=== PATIENT | female | born 1990 | race Hispanic/Latino ===

== ENCOUNTER 2018-02-23 19:25 | Observation (INO) | payer SELFPAY ==
--- NOTE | 2018-02-23 20:20 | RAD REPORT ---
EXAM DESCRIPTION: US - Abdomen Exam Limited - 02/23/2018 7:59 pm CLINICAL HISTORY: Abdominal pain COMPARISON: None. FINDINGS: Multiple mobile gallstones are identifiable. No mass identified. There is no wall thickeni ng or pericholecystic fluid. No common duct stone or biliary tree dilatation identified. IMPRESSION: Multi stone cholelithiasis. No acute gallbladder or biliary finding otherwise noted.
[2018-02-23] MEDS ORDERED: ONDANSETRON 4 MG/2 ML VIAL ONE (20:26)
[2018-02-23 20:27] LABS: Absolute Lymphocytes (CBC) 1.3 K/uL (0.7-4.9); Absolute Monocytes 0.6 K/uL (0.1-1.3); Absolute Neutrophil 4.7 K/uL (1.8-8.0); Basophils % 0.6 % (0-1.3); Eosinophils % 0.1 % (0-4.4); Hematocrit 45.2 % (36.0-45.0); Lymphocytes % 19.8 % (15.3-44.8); MCH 30.7 pg (27.0-35.0); MCV 88.5 fL (80-100); MPV 7.5 fL (7.6-11.3); Monocytes % 9.6 % (3.3-12.3); RBC Red Blood Cell Count 5.11 M/uL (3.86-4.86)
[2018-02-23] MEDS ORDERED: NA CHLORIDE 0.9% 1,000 ML ONE (20:36)
[2018-02-23 20:49] LABS: Bilirubin Direct 0.2 mg/dL (0-0.2); Bilirubin Total 1.1 mg/dL (0.3-1.2); Protein, Total 8.9 g/dL (6.0-8.3)
[2018-02-23 20:56] LABS: Potassium 2.8 mEq/L (3.6-5.0)
[2018-02-23] MEDS ORDERED: KCL 20 MEQ/100 mL IVPB 20 MEQ/100 ML BAG IV ONE (21:34)
--- NOTE | 2018-02-23 22:25 | ER ---
Nurse's Notes [facility] Name: Alma Delia Abdullahi Age: 27 yrs Sex: Female : 1990 Arrival Date: 02/23/2018 Time: 19:29 Bed 25 Private MD: Diagnosis: Vomiting, unspecified;Dehydration;Gastritis, unspecified, with bleeding Presentation: 02/23 19:40 Presenting complaint: Patient states: N/V epigastric pain that started last night. aj Reports pain radiates to back. Transition of care: patient was not received from another setting of care. Onset of symptoms was February 22, 2018. Care prior to arrival: None. 19:40 Method Of Arrival: Ambulatory aj 19:40 Acuity: MAURILIO 3 aj Triage Assessment: 19:42 General: Appears in no apparent distress. uncomfortable, Behavior is calm, cooperative, aj appropriate for age. Pain: Complains of pain in epigastric area Pain currently is 10 out of 10 on a pain scale. Neuro: Level of Consciousness is awake, alert, obeys commands, Oriented to person, place, time, situation. Respiratory: Airway is patent Respiratory effort is even, unlabored. GI: Abdomen is obese, Reports upper abdominal pain, nausea, vomiting. Derm: Skin is intact, is healthy with good turgor, Skin is pink, warm \T\ dry. normal. 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 - Social history:: Smoking status: Patient uses tobacco products, denies chronic smoking, but will smoke occasionally. Screenin:23 Abuse screen: Denies threats or abuse. Nutritional screening: No deficits noted. tl3 Tuberculosis screening: No symptoms or risk factors identified. Fall Risk None identified. Assessment: 20:20 General: Appears uncomfortable, well groomed, well developed, well nourished, Behavior tl3 is calm, cooperative, appropriate for age. 20:23 Pain: Complains of pain in diaphragm, xyphoid area and mid-sternal area. Neuro: Level tl3 of Consciousness is awake, alert, obeys commands, Oriented to person, place, time, situation, Appropriate for age. Cardiovascular: Heart tones S1 S2 present Capillary refill < 3 seconds in bilateral fingers. Respiratory: Airway is patent Trachea midline Respiratory effort is even, unlabored, Respiratory pattern is regular, symmetrical, Breath sounds are clear bilaterally. GI: Bowel sounds present X 4 quads. Reports indigestion, vomiting. GI: Abdomen is round. : No signs and/or symptoms were reported regarding the genitourinary system. EENT: No signs and/or symptoms were reported regarding the EENT system. Derm: No signs and/or symptoms reported regarding the dermatologic system. Musculoskeletal: No signs and/or symptoms reported regarding the musculoskeletal system. 20:51 Reassessment: Patient appears in no apparent distress at this time. No changes from tl3 previously documented assessment. Patient and/or family updated on plan of care and expected duration. Pain level reassessed. Patient is alert, oriented x 3, equal unlabored respirations, skin warm/dry/pink. vomiting has ceased. 21:50 Reassessment: Patient appears in no apparent distress at this time. No changes from tl3 previously documented assessment. Patient and/or family updated on plan of care and expected duration. Pain level reassessed. Patient is alert, oriented x 3, equal unlabored respirations, skin warm/dry/pink. 23:12 Reassessment: Patient appears in no apparent distress at this time. No changes from tl3 previously documented assessment. Patient and/or family updated on plan of care and expected duration. Pain level reassessed. Patient is alert, oriented x 3, equal unlabored respirations, skin warm/dry/pink. Vital Signs: 19:42 BP 145 / 119; Pulse 113; Resp 20; Temp 98.0; Pulse Ox 97% on R/A; Weight 104.33 kg; aj Height 5 ft. 2 in. (157.48 cm); Pain 10/10; 20:23 BP 148 / 100; Pulse 94; Resp 18; Pulse Ox 97% ; tl3 20:51 BP 145 / 117; Pulse 104; Resp 16; Pulse Ox 98% on R/A; tl3 23:12 BP 143 / 80; Pulse 96; Resp 16; Pulse Ox 100% on R/A; tl3 23:44 BP 151 / 84; Pulse 110; Resp 16; Pulse Ox 100% on R/A; tl3 19:42 Body Mass Index 42.07 (104.33 kg, 157.48 cm) aj ED Course: 19:29 Patient arrived in ED. ds1 19:41 Triage completed. aj 19:42 Arm band placed on left wrist. Patient placed in waiting room, Patient notified of wait aj time. ultrasound ordered. 19:50 Lobo Santiago MD is Attending Physician. tw4 19:59 Ultrasound completed. Patient tolerated well. cy 20:00 US Abdomen Limited In Process Unspecified. EDMS 20:19 Ting Jefferson, ED is Primary Nurse. tl3 20:19 Initial lab(s) drawn, by ED staff, sent to lab. Inserted saline lock: 18 gauge in right tl3 antecubital area, using aseptic technique. Blood collected. 20:23 Resting quietly. tl3 20:23 Patient has correct armband on for positive identification. Bed in low position. Side tl3 rails up X 1. Pulse ox on. NIBP on. 20:23 No provider procedures requiring assistance completed. tl3 20:56 Notified ED physician of a critical lab result(s). potassium of 2.8 Dr Santiago notified. bb 22:23 Mik Blackwood MD is Hospitalizing Provider. tw4 23:52 Patient admitted, IV remains in place. tl3 Administered Medications: 20:35 Drug: Zofran 4 mg Route: IVP; Infused Over: 3 mins; Site: left antecubital; tl3 20:43 Follow up: Response: No adverse reaction; Nausea is decreased tl3 20:35 Drug: NS 0.9% 1000 ml Route: IV; Rate: 1 bolus; Site: left antecubital; tl3 21:40 Follow up: IV Status: Completed infusion; IV Intake: 1000ml tl3 21:42 Drug: Potassium Chloride 20 mEq Route: IV; Rate: TKO; Site: left antecubital; tl3 23:45 Follow up: IV Status: Completed infusion; IV Intake: 100ml tl3 22:34 Drug: ProTONIX 40 mg Route: IVP; Site: left antecubital; kb1 23:45 Follow up: Response: No adverse reaction tl3 Intake: 21:40 IV: 1000ml; Total: 1000ml. tl3 23:45 IV: 100ml; Total: 1100ml. tl3 Outcome: 22:24 Decision to Hospitalize by Provider. tw4 23:52 Admitted to Tele accompanied by tech, via wheelchair, with chart, Report called to tl3 ED King 23:52 Condition: stable 02/24 00:21 Patient left the ED. tl3 Signatures: Dispatcher [employer] Cristina Mena RN Cece Reid ds1 Erna Herzog RN RN Joyce Coughlin Terrence, MD MD tw4 Violet Valdez RN RN kb1 Ting Jefferson RN RN tl3 Corrections: (The following items were deleted from the chart) 02/23 23:47 23:46 IV Status: Completed infusion; IV Intake: 1000ml tl3 tl3
--- NOTE | 2018-02-23 22:25 | EDPHYS ---
Physician Documentation [facility] Name: Alma Delia Abdullahi Age: 27 yrs Sex: Female : 1990 Arrival Date: 02/23/2018 Time: 19:29 Bed 25 Private MD: ED Physician Lobo Santiago HPI: 02/24 00:00 This 27 yrs old Female presents to ER via Ambulatory with complaints of tw4 Nausea, Vomiting, Chills, Fever. 00:00 The patient presents to the emergency department with nausea, vomiting. Onset: The tw4 symptoms/episode began/occurred today. Possible causes: unknown. The symptoms are aggravated by nothing. The symptoms are alleviated by nothing. Associated signs and symptoms: The patient has no apparent associated signs or symptoms. Severity of symptoms: At their worst the symptoms were moderate in the emergency department the symptoms are unchanged. The patient has not experienced similar symptoms in the past. 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 - Social history:: Smoking status: Patient uses tobacco products, denies chronic smoking, but will smoke occasionally. ROS: 02/24 00:00 Constitutional: Negative for fever, chills, and weight loss, Eyes: Negative for injury, tw4 pain, redness, and discharge, Cardiovascular: Negative for chest pain, palpitations, and edema, Respiratory: Negative for shortness of breath, cough, wheezing, and pleuritic chest pain, Back: Negative for injury and pain. Abdomen/GI: Positive for abdominal pain, nausea and vomiting, nausea, vomiting, and diarrhea, nausea, vomiting, Negative for constipation, black/tarry stool, rectal pain, rectal bleeding, bowel incontinence. Exam: 00:00 Constitutional: This is a well developed, well nourished patient who is awake, alert, tw4 and in no acute distress. Head/Face: Normocephalic, atraumatic. Chest/axilla: Normal chest wall appearance and motion. Nontender with no deformity. No lesions are appreciated. Cardiovascular: Regular rate and rhythm with a normal S1 and S2. No gallops, murmurs, or rubs. Normal PMI, no JVD. No pulse deficits. Respiratory: Lungs have equal breath sounds bilaterally, clear to auscultation and percussion. No rales, rhonchi or wheezes noted. No increased work of breathing, no retractions or nasal flaring. Abdomen/GI: Soft, non-tender, with normal bowel sounds. No distension or tympany. No guarding or rebound. No evidence of tenderness throughout. Vital Signs: 02/23 19:42 BP 145 / 119; Pulse 113; Resp 20; Temp 98.0; Pulse Ox 97% on R/A; Weight 104.33 kg; aj Height 5 ft. 2 in. (157.48 cm); Pain 10/10; 20:23 BP 148 / 100; Pulse 94; Resp 18; Pulse Ox 97% ; tl3 20:51 BP 145 / 117; Pulse 104; Resp 16; Pulse Ox 98% on R/A; tl3 23:12 BP 143 / 80; Pulse 96; Resp 16; Pulse Ox 100% on R/A; tl3 23:44 BP 151 / 84; Pulse 110; Resp 16; Pulse Ox 100% on R/A; tl3 19:42 Body Mass Index 42.07 (104.33 kg, 157.48 cm) aj MDM: 19:52 Patient medically screened. tw02/24 00:03 Differential diagnosis: Nonspecific abd pain, gastritis, cholecystitis. Data reviewed: tw4 vital signs, nurses notes. Counseling: I had a detailed discussion with the patient and/or guardian regarding: the historical points, exam findings, and any diagnostic results supporting the discharge/admit diagnosis, lab results. Physician consultation: Mik Blackwood MD regarding admission, patient's condition, and will see patient. 02/23 19:52 Order name: Amylase, Serum; Complete Time: 21:06 4 02/23 19:52 Order name: Basic Metabolic Panel; Complete Time: 21:06 tw4 02/23 21:06 Interpretation: Normal except: GLUC 124; GFR 60; CRE 1.09; K 2.8; CL 96. tw4 02/23 19:52 Order name: CBC with Diff; Complete Time: 21:06 4 02/23 21:06 Interpretation: Normal except: RBC 5.11; HGB 15.7; HCT 45.2; PLT 479; MPV 7.5. 02/23 19:52 Order name: Creatinine for Radiology; Complete Time: 21:06 02/23 19:52 Order name: Hepatic Function; Complete Time: 21:06 02/23 19:52 Order name: Lipase; Complete Time: 21:06 02/23 20:23 Order name: Urine Microscopic Only 02/23 19:41 Order name: US Abdomen Limited; Complete Time: 21:06 02/23 19:52 Order name: IV Saline Lock; Complete Time: 20:22 02/23 19:52 Order name: Labs collected and sent; Complete Time: 20:22 02/23 19:52 Order name: Urine Dipstick-Ancillary (obtain specimen); Complete Time: 23:00 02/23 20:23 Order name: Urine Dipstick-Ancillary (obtain specimen); Complete Time: 23:01 02/23 20:23 Order name: Urine Test (obtain specimen); Complete Time: 23:01 02/23 20:23 Order name: IV Saline Lock; Complete Time: 20:51 02/23 22:18 Order name: Urine Dipstick--Ancillary (enter results) [facility] 02/23 22:18 Order name: Urine --Ancillary (enter results) rg2 Administered Medications: 02/23 20:35 Drug: Zofran 4 mg Route: IVP; Infused Over: 3 mins; Site: left antecubital; tl3 20:43 Follow up: Response: No adverse reaction; Nausea is decreased tl3 20:35 Drug: NS 0.9% 1000 ml Route: IV; Rate: 1 bolus; Site: left antecubital; tl3 21:40 Follow up: IV Status: Completed infusion; IV Intake: 1000ml tl3 21:42 Drug: Potassium Chloride 20 mEq Route: IV; Rate: TKO; Site: left antecubital; tl3 23:45 Follow up: IV Status: Completed infusion; IV Intake: 100ml tl3 22:34 Drug: ProTONIX 40 mg Route: IVP; Site: left antecubital; kb1 23:45 Follow up: Response: No adverse reaction tl3 Disposition: 04/09/18 22:24 Hospitalization ordered by Mik Blackwood for Observation. Preliminary diagnosis are Vomiting, unspecified, Dehydration, Gastritis, unspecified, with bleeding. - Bed requested for Telemetry/MedSurg (observation). - Status is Observation. tl3 - Condition is Stable. - Problem is an ongoing problem. - Symptoms are unchanged. UTI on Admission? No Signatures: Dispatcher [employer] EDMS Cristina Silverio, RN RN Veronica Galindo RN RN Lobo Servin MD MD tw4 Violet Valdez RN RN kb1 Ting Jefferson, ED RN tl3 Corrections: (The following items were deleted from the chart) 20:42 20:24 LIPASE+C.LAB.BRZ ordered. EDMS EDMS 20:42 20:24 Creatinine for Radiology+C.LAB.BRZ ordered. EDMS EDMS 20:42 20:24 HEPATIC FUNCTION+C.LAB.BRZ ordered. EDMS EDMS 20:42 20:24 BASIC METABOLIC PANEL+C.LAB.BRZ ordered. EDMS EDMS 20:42 20:24 CBC+H.LAB.BRZ ordered. EDMS EDMS 20:42 20:24 AMYLASE, SERUM+C.LAB.BRZ ordered. EDMS EDMS 22:20 19:52 UA MICROSCOPIC+U.LAB.BRZ ordered. EDMS EDMS
[2018-02-23] MEDS ORDERED: PANTOPRAZOLE 40 MG INJ ONE (22:29)
[2018-02-23 22:32] LABS: Urine Blood 1+ (NEG); Urine Glucose NEGATIVE (NEG); Urine Protein 3+ (NEG); Urine Specific Gravity >1.030 (1.005-1.030); Urine pH 5.5 (5.0-7.0)
[2018-02-23] MEDS ORDERED: PANTOPRAZOLE 40 MG INJ IVP ONE (23:38)
[2018-02-23] MEDS ORDERED: SODIUM CHLORIDE 0.9% 10ML INJ IV PRN (23:38)
[2018-02-23] MEDS ORDERED: LORazepam 2 MG/ML VIAL IV PRN (23:40)
[2018-02-24 00:24] LABS: Calcium Oxalate Crystals- Ur MANY (NONE SEEN); Urine Bacteria >50 /HPF (<20); Urine Culture Reflex Order REFLEXED
[2018-02-24 00:25] LABS: Urine RBC <5 /HPF (NONE SEEN)
[2018-02-24] MEDS: MEPERIDINE HCL 25 MG/0.5 ML IV PRN ×3 (00:55→21:05)
[2018-02-24] MEDS: ONDANSETRON 4 MG/2 ML VIAL IV PRN ×2 (00:56→12:21)
[2018-02-24] MEDS: METHYLPREDNISOLONE 125 MG INJ IV SCH ×2 (00:56→06:45)
[2018-02-24] MEDS: NA CHLORIDE 0.9% 1,000 ML IV SCH ×3 (00:56→19:45)
[2018-02-24 01:14] VITALS: BMI 42.0
[2018-02-24] MEDS ORDERED: LORazepam 2 MG/ML VIAL IV ONE (01:43)
[2018-02-24] MEDS ORDERED: METOCLOPRAMIDE 10 MG/2mL INJ IV ONE (02:00)
[2018-02-24 05:01] LABS: Absolute Lymphocytes (CBC) 0.7 K/uL (0.7-4.9); Absolute Monocytes 0.1 K/uL (0.1-1.3); Absolute Neutrophil 6.1 K/uL (1.8-8.0); Basophils % 0.6 % (0-1.3); Hematocrit 41.9 % (36.0-45.0); Lymphocytes % 9.5 % (15.3-44.8); MCH 30.7 pg (27.0-35.0); MCV 88.9 fL (80-100); MPV 7.4 fL (7.6-11.3); Monocytes % 0.9 % (3.3-12.3); RBC Red Blood Cell Count 4.72 M/uL (3.86-4.86)
[2018-02-24 05:26] LABS: ALT/SGPT 39 IU/L (10-60); AST/SGOT 19 IU/L (10-42); Albumin 4.2 g/dL (3.2-5.5); Alkaline Phosphatase 77 IU/L (42-121); BUN Blood Urea Nitrogen 16 mg/dL (6-20); Bicarbonate 24 mEq/L (21-31); Bilirubin Total 0.8 mg/dL (0.3-1.2); Glomerular Filtration Rate > 90 mL/min (=/>90); Glucose Level 119 mg/dL (65-120); Magnesium 1.9 mg/dL (1.8-2.5); Phosphorus 2.8 mg/dL (2.5-4.3); Potassium 3.4 mEq/L (3.6-5.0); Protein, Total 7.7 g/dL (6.0-8.3); Sodium Level 135 mEq/L (135-145)
[2018-02-24 06:00] LABS: Blood Morphology Comment NOT SEEN (NOT SEEN); Platelet Estimate ADEQ
--- NOTE | 2018-02-24 07:58 | P.HP ---
Certification for Inpatient Patient admitted to: Observation With expected LOS: <2 Midnights Patient will require the following post-hospital care: None Practitioner: I am a practitioner with admitting privileges, knowledge of patient current condition, hospital course, and medical plan of care. Services: Services provided to patient in accordance with Admission requirements found in Title 42 Section 412.3 of the Code of Federal Regulations Patient History Date of Service: 02/24/18 Reason for admission: Persistent nausea and vomiting History of Present Illness: Patient is a 27-year-old female who comes into the emergency room with persistent nausea and vomiting. This has been going on for the last 24-48 hr. She has had this symptom on an off for the last 4 years. She has had a workup performed but no one has been able to tell her exactly why she has the persistent nausea and vomiting. She does smoke marijuana and regularly. She has been doing this since she was 15. Unsure as to the etiology of the nausea and vomiting. Have given her anti emetics and will see how she does. Will start a diet in the morning and advance as tolerated. Allergies NKDA Allergy (Uncoded 12/04/15 09:10) Unknown No Known Allergies Allergy (Uncoded 02/07/16 04:09) Unknown Home Medications: NK [No Home Meds] 02/24/18 - Past Medical/Surgical History Has patient received pneumonia vaccine in the past: No Diabetic: No -: GERD -: appendicitis w/o appendectomy Past Surgical History: Patient denies surgical history - Family History Father Family History: Reviewed- Non-Contributory - Social History Smoking Status: Never smoker Alcohol use: No CD- Drugs: Yes Caffeine use: Yes Place of Residence: Home Review of Systems 10-point ROS is otherwise unremarkable Physical Examination - Vital Signs Temperature: 99.2 F Blood Pressure: 146/76 Pulse: 87 Respirations: 16 Pulse Ox (%): 95 - Physical Exam General: Alert, In no apparent distress, Oriented x3 HEENT: Atraumatic, PERRLA, Mucous membr. moist/pink, EOMI, Sclerae nonicteric Neck: Supple, 2+ carotid pulse no bruit, No LAD, Without JVD or thyroid abnormality Respiratory: Clear to auscultation bilaterally, Normal air movement Cardiovascular: Regular rate/rhythm, Normal S1 S2, No murmurs Gastrointestinal: Normal bowel sounds, Soft and benign, Non-distended, No tenderness Musculoskeletal: No clubbing, No swelling, No tenderness Integumentary: No rashes Neurological: Normal gait, Normal speech, Normal strength at 5/5 x4 extr, Normal tone, Sensation intact, Cranial nerves 3-12 intact, Normal affect Lymphatics: No axilla or inguinal lymphadenopathy - Studies Laboratory Data (last 24 hrs) 02/23/18 20:23: WBC Cancelled, Hgb Cancelled, Hct Cancelled, Plt Count Cancelled 02/23/18 20:23: Creatinine Cancelled 02/23/18 20:23: Sodium Cancelled, Potassium Cancelled, BUN Cancelled, Creatinine Cancelled, Glucose Cancelled, Total Bilirubin Cancelled, AST Cancelled, ALT Cancelled, Alkaline Phosphatase Cancelled, Amylase Cancelled, Lipase Cancelled 02/23/18 20:07: Creatinine 1.11 H 02/23/18 20:07: WBC 6.8, Hgb 15.7 H, Hct 45.2 H, Plt Count 479 H 02/23/18 20:07: Sodium 135, Potassium 2.8 L*, BUN 20, Creatinine 1.09 H, Glucose 124 H, Total Bilirubin 1.1, AST 26, ALT 47, Alkaline Phosphatase 83, Amylase 68, Lipase 12 L Assessment & Plan - Problems (Diagnosis) (1) Intractable nausea and vomiting Current Visit: Yes Status: Acute (2) Cannabis hyperemesis syndrome concurrent with and due to cannabis abuse Current Visit: Yes Status: Acute - Plan Plan: 1. IV hydration 2. Anti emetics 3. Ice chips 4. Advanced diet in the morning as tolerated 5. Outpatient GI follow-up 6. Refrain from cannabis use; this should tell us if her symptoms are related to her cannabis use 7. GI and DVT prophylaxis Discharge Plan: Home Plan to discharge in: 48 Hours - Advance Directives Does patient have a Living Will: No Does patient have a Durable POA for Healthcare: No - Code Status/Comfort Care Code Status Assessed: Yes Code Status: Full Code Critical Care: No Time Spent Managing PTS Care (In Minutes): 50
[2018-02-24] MEDS: PANTOPRAZOLE 40 MG INJ IVP SCH ×2 (08:53→20:43)
--- NOTE | 2018-02-24 10:13 | P.PN ---
Subjective Date of Service: 02/24/18 Chief Complaint: Persistent nausea and vomiting Subjective: Improving (Patient without nausea and vomiting this morning.) Physical Examination - Vital Signs Temperature: 99.2 F Blood Pressure: 146/76 Pulse: 87 Respirations: 16 Pulse Ox (%): 95 - Physical Exam General: Alert, In no apparent distress, Oriented x3, Cooperative HEENT: Atraumatic, Mucous membr. moist/pink Neck: Supple Respiratory: Clear to auscultation bilaterally, Normal air movement Cardiovascular: Normal pulses, Regular rate/rhythm Gastrointestinal: Normal bowel sounds, Soft and benign, Non-distended, No tenderness, No masses, No rebound, No guarding Musculoskeletal: No erythema, No tenderness, No warmth Integumentary: No tenderness/swelling, No erythema, No warmth, No cyanosis Neurological: Normal speech, Normal strength at 5/5 x4 extr, Normal tone, Normal affect - Studies Laboratory Data (last 24 hrs) 02/23/18 20:23: WBC Cancelled, Hgb Cancelled, Hct Cancelled, Plt Count Cancelled 02/23/18 20:23: Creatinine Cancelled 02/23/18 20:23: Sodium Cancelled, Potassium Cancelled, BUN Cancelled, Creatinine Cancelled, Glucose Cancelled, Total Bilirubin Cancelled, AST Cancelled, ALT Cancelled, Alkaline Phosphatase Cancelled, Amylase Cancelled, Lipase Cancelled 02/23/18 20:07: Creatinine 1.11 H 02/23/18 20:07: WBC 6.8, Hgb 15.7 H, Hct 45.2 H, Plt Count 479 H 02/23/18 20:07: Sodium 135, Potassium 2.8 L*, BUN 20, Creatinine 1.09 H, Glucose 124 H, Total Bilirubin 1.1, AST 26, ALT 47, Alkaline Phosphatase 83, Amylase 68, Lipase 12 L Medications List Reviewed: Yes Assessment & Plan - Problems (Diagnosis) (1) Alcohol abuse Current Visit: Yes Status: Chronic Plan: Alcohol cessation education will be provided. (2) Cannabis hyperemesis syndrome concurrent with and due to cannabis abuse Onset Date: 02/24/18 Current Visit: Yes Status: Acute Plan: THC cessation addressed in detail. This is likely cause of her nausea and vomiting. Patient also likely has GERD. Will provide PPI. Lab improved. Will advance her diet. Anticipate discharge later today. Patient may follow up with GI as an outpatient. (3) Intractable nausea and vomiting Onset Date: 02/24/18 Current Visit: Yes Status: Acute Plan: Continue with above plan of care. Qualifiers: Vomiting type: unspecified Qualified Code(s): R11.2 - Nausea with vomiting , unspecified (4) GERD (gastroesophageal reflux disease) Current Visit: Yes Status: Suspected Plan: Will start PPI. Patient will need a follow up with GI as an outpatient. Will continue with above plan of care. Qualifiers: Esophagitis presence: esophagitis presence not specified Qualified Code(s) : K21.9 - Gastro-esophageal reflux disease without esophagitis (5) Obesity Current Visit: Yes Status: Chronic Plan: Will address lifestyle modification education. Qualifiers: Obesity type: due to excess calories Obesity classification: adult class 3 (BMI >= 40) Serious obesity comorbidity presence: with serious comorbidity Body mass index: BMI 40.0-44.9 Qualified Code(s): E66.01 - Morbid (severe) obesity due to excess calories; Z68.41 - Body mass index (BMI) 40.0-44.9, adult ; Z68.41 - Body mass index (BMI) 40.0-44.9, adult; Z68.41 - Body mass index (BMI ) 40.0-44.9, adult; Z68.41 - Body mass index (BMI) 40.0-44.9, adult (6) Hypokalemia Current Visit: Yes Status: Acute Plan: This has improved. Will continue to monitor closely. (7) Acute renal injury Current Visit: Yes Status: Acute Plan: This has resolved. Will monitor closely. Will advance diet. Anticipate discharge later today. (8) Dehydration Current Visit: Yes Status: Acute Plan: This has significantly improved. Will encourage oral intake. Discharge Plan: Home Plan to discharge in: 24 Hours Time Spent Managing Pts Care (In Minutes): 55
[2018-02-24] MEDS ORDERED: HYDRALAZINE HCL 20 MG/ML VIAL IV PRN (14:17)
[2018-02-24] MEDS: METOPROLOL TAR 25 MG TAB PO SCH ×3 (14:55→18:54)
[2018-02-24] MEDS: PROMETHAZINE 25 MG/ML VIAL IV PRN ×2 (14:56→20:43)
[2018-02-24] MEDS ORDERED: ENOXAPARIN 40 MG/0.4 ML SQ SCH (17:00)
[2018-02-24 21:33] LABS: Urine Appearance CLEAR; Urine Bilirubin NEGATIVE (NEG); Urine Blood NEGATIVE (NEG); Urine Color YELLOW; Urine Glucose NEGATIVE (NEG); Urine Protein NEGATIVE (NEG); Urine Urobilinogen 0.2 mg/dL (0.2-1.0)
[2018-02-24 21:41] LABS: Urine Microscopic Reflex NO UMIC
[2018-02-24 21:44] LABS: Barbiturates NEGATIVE; Benzodiazepines NEGATIVE; Cocaine NEGATIVE; METHAMPHETAM NEGATIVE; Opiates NEGATIVE; Phencyclidine NEGATIVE; THC Cannibis POSITIVE
[2018-02-25] MEDS: NA CHLORIDE 0.9% 1,000 ML IV SCH (02:06)
[2018-02-25] MEDS: METOPROLOL TAR 25 MG TAB PO SCH (05:09)
--- NOTE | 2018-02-25 06:22 | P.PN ---
Date of Service: 02/24/18 Patient continues to have vomiting episodes. She just vomited 100 mL per her nurse. She says the only thing that helps her is a hot shower. This is very typical of cannabis hyperemesis syndrome. She will need to refrain from using marijuana going forward. Anticipate discharge in a.m.
[2018-02-25] MEDS ORDERED: ONDANSETRON 4 MG (ODT) TAB PO ONE (08:05)
--- NOTE | 2018-02-25 08:08 | P.DS ---
Admission Date: 02/23/18 Discharge Date: 02/25/18 Primary Care Provider: None Disposition: ROUTINE DISCHARGE Discharge Condition: GOOD Reason for Admission: Persistent nausea and vomiting Procedures: Abdominal ultrasound: Multi stone cholelithiasis. No cholecystitis noted. - Problems (1) Alcohol abuse Current Visit: Yes Status: Chronic (2) Cannabis hyperemesis syndrome concurrent with and due to cannabis abuse Onset Date: 02/24/18 Current Visit: Yes Status: Acute (3) Intractable nausea and vomiting Onset Date: 02/24/18 Current Visit: Yes Status: Acute Qualifiers: Vomiting type: unspecified Qualified Code(s): R11.2 - Nausea with vomiting , unspecified (4) GERD (gastroesophageal reflux disease) Current Visit: Yes Status: Suspected Qualifiers: Esophagitis presence: esophagitis presence not specified Qualified Code(s) : K21.9 - Gastro-esophageal reflux disease without esophagitis (5) Obesity Current Visit: Yes Status: Chronic Qualifiers: Obesity type: due to excess calories Obesity classification: adult class 3 (BMI >= 40) Serious obesity comorbidity presence: with serious comorbidity Body mass index: BMI 40.0-44.9 Qualified Code(s): E66.01 - Morbid (severe) obesity due to excess calories; Z68.41 - Body mass index (BMI) 40.0-44.9, adult ; Z68.41 - Body mass index (BMI) 40.0-44.9, adult; Z68.41 - Body mass index (BMI ) 40.0-44.9, adult; Z68.41 - Body mass index (BMI) 40.0-44.9, adult (6) Hypokalemia Current Visit: Yes Status: Acute (7) Acute renal injury Current Visit: Yes Status: Acute (8) Dehydration Current Visit: Yes Status: Acute (9) Hypertension Current Visit: Yes Status: Acute Qualifiers: Hypertension type: essential hypertension Qualified Code(s): I10 - Essential (primary) hypertension (10) Cholelithiasis Current Visit: Yes Status: Chronic Qualifiers: Cholelithiasis location: bile duct Cholecystitis presence: without cholecystitis Biliary obstruction: without biliary obstruction Qualified Code(s): K80.50 - Calculus of bile duct without cholangitis or cholecystitis without obstruction Brief History of Present Illness: 27-year-old female presented to the emergency room for nausea and vomiting. The patient came to the ER it was found to be slightly hypokalemic. The patient admitted to THC use on a regular basis. The patient was admitted for further evaluation. Hospital Course: During her stay in the intractable nausea and vomiting resolved. Patient did have some mild nausea near discharge but she was without any significant abdominal pain. She was able tolerate a diet. Nausea and vomiting likely related to its THC use. The patient was having frequent baths. This is typical for hyperemesis related to THC use. She was counseled extensively on THC cessation. She reports that she has been in drug rehab in the distant past. She has been using THC for the last 4 years. She has reported nausea and vomiting since that time. At discharge the patient likely has underlying GERD as well. At discharge patient will continue with Protonix 40 mg 1 pill once daily. Recommendations for the patient to follow up with GI as an outpatient to further evaluate. Patient may require EGD in the future. Patient will be provided Zofran 4 mg every 6 hr as needed for nausea. Patient with alcohol abuse. Recommendation to discontinue alcohol. Alcohol cessation education will be provided. Patient will be provided thiamine 100 mg daily and folic acid 1 mg daily. Patient may require outpatient rehab if this continues. Patient with mild dehydration. This has resolved. Patient encouraged to increase oral intake. Patient had elevated BP. Patient likely has hypertension. Metoprolol 12.5 mg 1 pill twice daily was added. At discharge she will continue with this medication. Recommendation is to monitor blood pressures daily. Recommendation is to maintain blood pressures less 150/80. Further adjustment can be done by her PCP. Patient was found to have gallstones. No cholecystitis noted. This has been addressed in the past. At discharge she may follow up with surgery further evaluate and consider surgery as an outpatient Patient will be given information to establish care with a local physician to further address her medical needs. Vital Signs/Physical Exam: Temp Pulse Resp BP Pulse Ox 97.8 F 78 18 149/82 H 98 02/25/18 04:00 02/25/18 05:09 02/25/18 04:00 02/25/18 05:09 02/25/18 04:00 General: Alert, In no apparent distress, Oriented x3, Cooperative HEENT: Atraumatic Neck: Supple Respiratory: Clear to auscultation bilaterally, Normal air movement Cardiovascular: Normal pulses, Regular rate/rhythm Gastrointestinal: Normal bowel sounds, Soft and benign, Non-distended, No tenderness, No masses, No rebound, No guarding Musculoskeletal: No erythema, No tenderness, No warmth Integumentary: No tenderness/swelling, No erythema, No warmth, No cyanosis Neurological: Normal speech, Normal strength at 5/5 x4 extr, Normal tone, Normal affect Laboratory Data at Discharge: WBC 6.8 K/uL (4.3-10.9) 02/24/18 04:39 Hgb 14.5 g/dL (12.0-15.0) 02/24/18 04:39 Hct 41.9 % (36.0-45.0) 02/24/18 04:39 Plt Count 440 K/uL (152-406) H 02/24/18 04:39 Sodium 135 mEq/L (135-145) 02/24/18 04:39 Potassium 3.4 mEq/L (3.6-5.0) L 02/24/18 04:39 BUN 16 mg/dL (6-20) 02/24/18 04:39 Creatinine 0.73 mg/dL (0.44-1.00) 02/24/18 04:39 Glucose 119 mg/dL (65-120) 02/24/18 04:39 Phosphorus 2.8 mg/dL (2.5-4.3) 02/24/18 04:39 Magnesium 1.9 mg/dL (1.8-2.5) 02/24/18 04:39 Total Bilirubin 0.8 mg/dL (0.3-1.2) 02/24/18 04:39 AST 19 IU/L (10-42) 02/24/18 04:39 ALT 39 IU/L (10-60) 02/24/18 04:39 Alkaline Phosphatase 77 IU/L (42-121) 02/24/18 04:39 Amylase Cancelled 02/23/18 20:23 Lipase Cancelled 02/23/18 20:23 Home Medications: Folic Acid 1 mg PO DAILY #30 tablet 02/24/18 Ondansetron HCl [Zofran] 4 mg PO Q6HR PRN #15 tablet 02/24/18 Pantoprazole [Protonix Tab] 40 mg PO DAILY #30 tab 02/24/18 Thiamine HCl 100 mg PO DAILY #30 tablet 02/24/18 Metoprolol Tartrate [Lopressor*] 12.5 mg PO BID #30 tab 02/25/18 New Medications: Folic Acid 1 mg PO DAILY #30 tablet Metoprolol Tartrate [Lopressor*] 12.5 mg PO BID #30 tab Ondansetron HCl [Zofran] 4 mg PO Q6HR PRN #15 tablet PRN Reason: Nausea / Vomiting Pantoprazole [Protonix Tab] 40 mg PO DAILY #30 tab Thiamine HCl 100 mg PO DAILY #30 tablet Patient Discharge Instructions: 1. Patient will need to follow up with her PCP to establish care and follow up this hospitalization. 2. Patient presented with intractable nausea and vomiting likely from THC use. THC cessation recommended. Patient may have underlying GERD. At discharge patient will continue with Protonix 40 mg 1 pill once daily. Recommendations for the patient to follow up with GI as an outpatient to further evaluate. Patient may require EGD in the future. Patient will be provided Zofran 4 mg every 6 hr as needed for nausea. 3. Patient with alcohol abuse. Recommendation to discontinue alcohol. Alcohol cessation education will be provided. Patient will be provided thiamine 100 mg daily and folic acid 1 mg daily. Patient may require outpatient rehab if this continues. 4. Patient with mild dehydration. This has resolved. Patient encouraged to increase oral intake. 5. Patient had elevated BP. Patient likely has hypertension. Metoprolol 12.5 mg 1 pill twice daily was added. At discharge she will continue with this medication. Recommendation is to monitor blood pressures daily. Recommendation is to maintain blood pressures less 150/80. Further adjustment can be done by her PCP. 6. Patient has gallstones. No cholecystitis noted. At discharge she may follow up with surgery further evaluate and consider surgery as an outpatient Diet: [place] diet Activity: Ad marya Time spent managing pt's care (in minutes): 55
[2018-02-25 08:21] VITALS: BP 117/77; TEMP 97.5
[2018-02-25] MEDS: PANTOPRAZOLE 40 MG INJ IVP SCH (08:29)
[2018-02-25 09:48] VITALS: O2SAT 100
[2018-02-26 11:55] LABS: HBsAG Nonreactive (Nonreactive); Hepatitis A IgM Antibody Nonreactive
== END 2018-02-25 09:57 | disposition home or self-care (01) ==
LOC: ER 19:25 → ERHOLD 23:33 → 4TH 23:55
PROVIDERS: ADMIT Hospitalist; ATTEND Family Medicine
DX: F12.188 Cannabis abuse with other cannabis-induced disorder (principal); K21.9 Gastro-esophageal reflux disease without esophagitis; R11.2 Nausea with vomiting, unspecified; F10.10 Alcohol abuse, uncomplicated; E66.09 Other obesity due to excess calories; Z68.41 Body mass index [BMI] 40.0-44.9, adult; E87.6 Hypokalemia; E86.0 Dehydration; N17.9 Acute kidney failure, unspecified; K80.20 Calculus of gallbladder without cholecystitis without obstruction
CPT/HCPCS: 36415; 76705; 80048; 80053; 80074; 80076; 80307; 81003; 81015; 81025; 82150; 83690; 83735; 84100; 85025; 87086; 87088; 96361; 96374; 96375; 99285; C9113; G0378; J0360; J2175; J2405; J2550; J2765; J2930; J7030

== ENCOUNTER 2019-02-03 14:04 | Emergency (ER) | payer SELFPAY ==
[2019-02-03] MEDS ORDERED: NA CHLORIDE 0.9% 1,000 ML ONE (14:59)
[2019-02-03] MEDS ORDERED: ONDANSETRON 4 MG/2 ML VIAL ONE (14:59)
[2019-02-03 15:06] LABS: Absolute Lymphocytes (CBC) 1.5 K/uL (0.7-4.9); Absolute Monocytes 0.7 K/uL (0.1-1.3); Absolute Neutrophil 5.9 K/uL (1.8-8.0); Basophils % 0.6 % (0-1.3); Eosinophils % 0.1 % (0-4.4); Lymphocytes % 18.6 % (15.3-44.8); Monocytes % 8.8 % (3.3-12.3); RBC Red Blood Cell Count 4.47 M/uL (3.86-4.86)
[2019-02-03 15:16] LABS: ALT/SGPT 53 U/L (12-78); AST/SGOT 43 U/L (15-37); Albumin 3.7 g/dL (3.4-5.0); Alkaline Phosphatase 98 U/L (45-117); BUN Blood Urea Nitrogen 14 mg/dL (7-18); Bicarbonate 25 mmol/L (21-32); Bilirubin Direct 0.2 mg/dL (0-0.2); Bilirubin Total 0.6 mg/dL (0.2-1.0); Glucose Level 110 mg/dL (74-106); Lipase 71 U/L (73-393); Potassium 3.7 mmol/L (3.5-5.1); Protein, Total 8.1 g/dL (6.4-8.2); Sodium Level 139 mmol/L (136-145)
[2019-02-03 16:41] LABS: Urine Blood 1+ (NEG); Urine Glucose NEGATIVE (NEG); Urine Protein 1+ (NEG)
--- NOTE | 2019-02-03 17:03 | EDPHYS ---
Physician Documentation [facility] Name: Alma Delia Abdullahi Age: 28 yrs Sex: Female : 1990 Arrival Date: 02/03/2019 Time: 14:07 Bed 13 Private MD: ED Physician Favio Wilcox HPI: 02/03 15:00 This 28 yrs old Female presents to ER via Ambulatory with complaints of pm1 Abdominal Pain, Vomiting/Diarrhea. 15:00 The patient presents to the emergency department with nausea, vomiting, diarrhea. pm1 Onset: The symptoms/episode began/occurred yesterday. Possible causes: sick contacts, by co-worker(s). The symptoms are aggravated by nothing. The symptoms are alleviated by nothing. Associated signs and symptoms: Pertinent positives: Abdominal cramping, Pertinent negatives: constipation, fever. Severity of symptoms: in the emergency department the symptoms are unchanged. The patient has not experienced similar symptoms in the past. The patient has not recently seen a physician. 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 [employer]: 17:20 LMP N/A - Irregular menses bp Historical: - Allergies: 14:24 No Known Allergies; ss - Home Meds: 14:24 None [Active]; ss - PMHx: 17:23 appendicitis w/o appendectomy; bp - PSHx: 14:24 None; ss - Immunization history:: Adult Immunizations up to date. - Social history:: Smoking status: Patient/guardian denies using tobacco. - Ebola Screening: : Patient denies exposure to infectious person Patient denies travel to an Ebola-affected area in the 21 days before illness onset. ROS: 15:00 Constitutional: Negative for fever, chills, and weight loss, Eyes: Negative for injury, pm1 pain, redness, and discharge, ENT: Negative for injury, pain, and discharge, Neck: Negative for injury, pain, and swelling, Cardiovascular: Negative for chest pain, palpitations, and edema, Respiratory: Negative for shortness of breath, cough, wheezing, and pleuritic chest pain. 15:00 Back: Negative for injury and pain, : Negative for injury, bleeding, discharge, and swelling, MS/Extremity: Negative for injury and deformity, Skin: Negative for injury, rash, and discoloration, Neuro: Negative for headache, weakness, numbness, tingling, and seizure. 15:00 Abdomen/GI: Positive for nausea, vomiting, and diarrhea, abdominal cramps, Negative for hematemesis, black/tarry stool, rectal pain, rectal bleeding. Exam: 15:00 Constitutional: This is a well developed, well nourished patient who is awake, alert, pm1 and in no acute distress. Head/Face: Normocephalic, atraumatic. Eyes: Pupils equal round and reactive to light, extra-ocular motions intact. Lids and lashes normal. Conjunctiva and sclera are non-icteric and not injected. Cornea within normal limits. Periorbital areas with no swelling, redness, or edema. ENT: Nares patent. No nasal discharge, no septal abnormalities noted. Tympanic membranes are normal and external auditory canals are clear. Oropharynx with no redness, swelling, or masses, exudates, or evidence of obstruction, uvula midline. Mucous membranes moist. Neck: Trachea midline, no thyromegaly or masses palpated, and no cervical lymphadenopathy. Supple, full range of motion without nuchal rigidity, or vertebral point tenderness. No Meningismus. Chest/axilla: Normal chest wall appearance and motion. Nontender with no deformity. No lesions are appreciated. Cardiovascular: Regular rate and rhythm with a normal S1 and S2. No gallops, murmurs, or rubs. Normal PMI, no JVD. No pulse deficits. Respiratory: Lungs have equal breath sounds bilaterally, clear to auscultation and percussion. No rales, rhonchi or wheezes noted. No increased work of breathing, no retractions or nasal flaring. Abdomen/GI: Soft, non-tender, with normal bowel sounds. No distension or tympany. No guarding or rebound. No evidence of tenderness throughout. Back: No spinal tenderness. No costovertebral tenderness. Full range of motion. Skin: Warm, dry with normal turgor. Normal color with no rashes, no lesions, and no evidence of cellulitis. MS/ Extremity: Pulses equal, no cyanosis. Neurovascular intact. Full, normal range of motion. 15:00 Neuro: Orientation: is normal, Motor: is normal, moves all fours, Gait: is steady, at a normal pace, without difficulty. Vital Signs: 14:24 BP 146 / 97; Pulse 109; Resp 18; Temp 97.9(TE); Pulse Ox 98% on R/A; Weight 104.33 kg; ss Height 5 ft. 1 in. (154.94 cm); Pain 4/10; 15:59 BP 142 / 111; Pulse 98; Resp 14; Pulse Ox 96% ; bp 17:20 BP 139 / 96; Pulse 93; Resp 14; Pulse Ox 96% ; bp 14:24 Body Mass Index 43.46 (104.33 kg, 154.94 cm) ss MDM: 14:15 Patient medically screened. dominick 17:01 Data reviewed: vital signs. Data interpreted: Pulse oximetry: on room air is 96 %. pm1 Interpretation: normal. Counseling: I had a detailed discussion with the patient and/or guardian regarding: the historical points, exam findings, and any diagnostic results supporting the discharge/admit diagnosis, lab results, the need for outpatient follow up, to return to the emergency department if symptoms worsen or persist or if there are any questions or concerns that arise at home. 02/03 14:37 Order name: Basic Metabolic Panel pm1 02/03 14:37 Order name: CBC with Diff; Complete Time: 15:20 pm1 02/03 14:37 Order name: Creatinine for Radiology; Complete Time: 15:20 pm1 02/03 14:37 Order name: Hepatic Function pm1 02/03 14:37 Order name: Lipase pm1 02/03 14:38 Order name: Basic Metabolic Panel; Complete Time: 15:20 EDMS 02/03 14:37 Order name: IV Saline Lock; Complete Time: 14:51 pm1 02/03 14:38 Order name: Liver (Hepatic) Function; Complete Time: 15:20 EDMS 02/03 14:39 Order name: Lipase; Complete Time: 15:20 EDMS 02/03 15:23 Order name: Urine Dipstick--Ancillary (enter results); Complete Time: 17:01 bd 02/03 15:23 Order name: Urine --Ancillary (enter results); Complete Time: 17:01 bd 02/03 14:37 Order name: Labs collected and sent; Complete Time: 14:51 pm1 02/03 14:37 Order name: Urine Dipstick-Ancillary (obtain specimen); Complete Time: 15:34 pm1 02/03 14:37 Order name: Urine Test (obtain specimen); Complete Time: 15:35 pm1 Administered Medications: 14:51 Drug: Zofran 4 mg Route: IVP; Site: right antecubital; bp 17:19 Follow up: Response: No adverse reaction; Nausea is decreased bp 14:51 Drug: NS 0.9% 1000 ml Route: IV; Rate: 1000 ml; Site: right antecubital; bp 17:19 Follow up: IV Status: Completed infusion; IV Intake: 1000ml bp 17:19 Drug: TORadol 30 mg Route: IVP; Site: right antecubital; bp 17:20 Follow up: Response: No adverse reaction; Medication administered at discharge. bp Disposition: 02/04 08:07 Co-signature as Attending Physician, Favio Wilcox MD I agree with the assessment and dominick plan of care. Disposition: 02/03/19 17:02 Discharged to Home. Impression: Vomiting, Diarrhea, unspecified. - Condition is Stable. - Discharge Instructions: Food Choices to Help Relieve Diarrhea, Adult, Diarrhea, Adult, Nausea and Vomiting, Adult, Viral Gastroenteritis, Adult. - Prescriptions for Bentyl 20 mg Oral Tablet - take 1 tablet by ORAL route every 6 hours As needed; 20 tablet. Zofran 4 mg Oral Tablet - take 1 tablet by ORAL route every 12 hours As needed; 20 tablet. - Work release form, Medication Reconciliation Form, Thank You Letter, Antibiotic Education, Prescription Opioid Use form. - Follow up: Emergency Department; When: As needed; Reason: Worsening of condition. Follow up: Private Physician; When: 2 - 3 days; Reason: Recheck today's complaints, Continuance of care, Re-evaluation by your physician. - Problem is new. - Symptoms have improved. Signatures: Dispatcher [employer] Favio Roberson MD MD cha Smirch, Shelby, RN RN ss Samuel Teague, CLERICAL ADJUDICATOR CLERICAL ADJUDICATOR pm1 Catarino Fitzpatrick, RN RN bp Corrections: (The following items were deleted from the chart) 02/03 17:23 14:24 PMHx: None; bp 17:24 17:02 02/03/2019 17:02 Discharged to Home. Impression: Vomiting; Diarrhea, unspecified. bp Condition is Stable. Forms are Medication Reconciliation Form, Thank You Letter, Antibiotic Education, Prescription Opioid Use. Follow up: Emergency Department; When: As needed; Reason: Worsening of condition. Follow up: Private Physician; When: 2 - 3 days; Reason: Recheck today's complaints, Continuance of care, Re-evaluation by your physician. Problem is new. Symptoms have improved. pm1
--- NOTE | 2019-02-03 17:03 | ER ---
Nurse's Notes [facility] Name: Alma Delia Abdullahi Age: 28 yrs Sex: Female : 1990 Arrival Date: 02/03/2019 Time: 14:07 Bed 13 Private MD: Diagnosis: Vomiting;Diarrhea, unspecified Presentation: 02/03 14:22 Presenting complaint: Patient states: abd pain, N/V/D that began yesterday. Transition ss of care: patient was not received from another setting of care. Onset of symptoms was February 02, 2019. Risk Assessment: Do you want to hurt yourself or someone else? Patient reports no desire to harm self or others. Initial Sepsis Screen: Does the patient meet any 2 criteria? No. Patient's initial sepsis screen is negative. Does the patient have a suspected source of infection? No. Patient's initial sepsis screen is negative. Care prior to arrival: None. 14:22 Method Of Arrival: Ambulatory ss 14:22 Acuity: MAURILIO 3 ss Triage Assessment: 14:31 General: Appears in no apparent distress. comfortable, Behavior is cooperative, bp appropriate for age, anxious. Pain: Complains of pain in abdomen. GI: Abdomen is non-distended. [employer] AID: 17:20 LMP N/A - Irregular menses bp Historical: - Allergies: 14:24 No Known Allergies; ss - Home Meds: 14:24 None [Active]; ss - PMHx: 17:23 appendicitis w/o appendectomy; bp - PSHx: 14:24 None; ss - Immunization history:: Adult Immunizations up to date. - Social history:: Smoking status: Patient/guardian denies using tobacco. - Ebola Screening: : Patient denies exposure to infectious person Patient denies travel to an Ebola-affected area in the 21 days before illness onset. Screenin:30 Abuse screen: Denies threats or abuse. Denies injuries from another. Nutritional bp screening: No deficits noted. Tuberculosis screening: No symptoms or risk factors identified. Fall Risk None identified. Assessment: 14:30 General: Appears in no apparent distress. comfortable, Behavior is calm, cooperative, bp appropriate for age, SEE TRIAGE NOTE. 14:30 GI: Bowel sounds present X 4 quads. Abd is soft X 4 quads. bp 15:59 Reassessment: ALL CURRENT ORDERS COMPLETED, RESULTS PENDING. bp 17:23 Reassessment: PT D/C HOME AMBULATORY WITH FAMILY, DX WITH VIRAL GASTROENTERITIS. bp Vital Signs: 14:24 BP 146 / 97; Pulse 109; Resp 18; Temp 97.9(TE); Pulse Ox 98% on R/A; Weight 104.33 kg; ss Height 5 ft. 1 in. (154.94 cm); Pain 4/10; 15:59 BP 142 / 111; Pulse 98; Resp 14; Pulse Ox 96% ; bp 17:20 BP 139 / 96; Pulse 93; Resp 14; Pulse Ox 96% ; bp 14:24 Body Mass Index 43.46 (104.33 kg, 154.94 cm) ss ED Course: 14:07 Patient arrived in ED. mr 14:14 Samuel Teague, SOFYA is PHCP. pm1 14:14 Favio Wilcox MD is Attending Physician. pm1 14:16 Catarino Fitzpatrick, ED is Primary Nurse. bp 14:23 Triage completed. ss 14:24 Arm band placed on right wrist. ss 14:30 Patient has correct armband on for positive identification. Bed in low position. Call bp light in reach. Side rails up X2. 14:45 Inserted saline lock: 22 gauge in right antecubital area, using aseptic technique. ss Blood collected. Patient maintains SpO2 saturation greater than 95% on room air. 17:21 No provider procedures requiring assistance completed. IV discontinued, intact, bp bleeding controlled, No redness/swelling at site. Pressure dressing applied. Administered Medications: 14:51 Drug: Zofran 4 mg Route: IVP; Site: right antecubital; bp 17:19 Follow up: Response: No adverse reaction; Nausea is decreased bp 14:51 Drug: NS 0.9% 1000 ml Route: IV; Rate: 1000 ml; Site: right antecubital; bp 17:19 Follow up: IV Status: Completed infusion; IV Intake: 1000ml bp 17:19 Drug: TORadol 30 mg Route: IVP; Site: right antecubital; bp 17:20 Follow up: Response: No adverse reaction; Medication administered at discharge. bp Intake: 17:19 IV: 1000ml; Total: 1000ml. bp Outcome: 17:02 Discharge ordered by . pm1 17:22 Discharged to home ambulatory, with family. bp 17:22 Condition: stable 17:22 Discharge instructions given to patient, Instructed on discharge instructions, follow up and referral plans. medication usage, Demonstrated understanding of instructions, follow-up care, medications, Prescriptions given X 2. 17:24 Patient left the ED. bp Signatures: Flores Castro Shelby, RN RN ss Samuel Teague, SFOYA COMMERCIAL LOAN CLOSER pm1 Catarino Fitzpatrick RN RN bp Corrections: (The following items were deleted from the chart) 17:23 14:24 PMHx: None; bp
[2019-02-03] MEDS ORDERED: KETOROLAC 30 MG/ML INJ ONE (17:22)
[2019-02-03 17:36] VITALS: TEMP 97.9
[2019-02-03 17:45] VITALS: BP 139/96; O2SAT 96
== END 2019-02-03 17:24 | disposition home or self-care (01) ==
LOC: ER 14:04
DX: R19.7 Diarrhea, unspecified (principal)
CPT/HCPCS: 36415; 80048; 80076; 81003; 81025; 83690; 85025; 96361; 96374; 96375; 99284; J2405; J7030

== ENCOUNTER 2019-10-15 10:10 | Emergency (ER) | payer SELFPAY ==
--- NOTE | 2019-10-15 11:31 | RAD REPORT ---
EXAM DESCRIPTION: Tracy Goins (2 Views)10/15/2019 11:16 am CLINICAL HISTORY: Cough COMPARISON: 2016 FINDINGS: The lungs appear clear of acute infiltrate. The heart is normal size IMPRESSION: No acute abnormalities displayed
--- NOTE | 2019-10-15 12:18 | EDPHYS ---
Physician Documentation [facility] Name: Alma Delia Abdullahi Age: 29 yrs Sex: Female : 1990 Arrival Date: 10/15/2019 Time: 10:13 Bed 19 Private MD: ED Physician Star Villela HPI: 10/15 12:38 This 29 yrs old Female presents to ER via Ambulatory with complaints of Sore kb Throat, Breathing Difficulty. 12:39 The patient or guardian reports cough, that is intermittent, described as moderate, kb with no sputum. Onset: The symptoms/episode began/occurred 3 day(s) ago. Severity of symptoms: At their worst the symptoms were moderate, in the emergency department the symptoms are unchanged. Modifying factors: The symptoms are alleviated by nothing, the symptoms are aggravated by nothing. Associated signs and symptoms: Pertinent positives: rhinorrhea, sore throat. The patient has not experienced similar symptoms in the past. The patient has not recently seen a physician. Pt reports cough and sore throat for 3 days. This morning cough was worse and it made her feel short of breath. Denies shortness of breath now, chest pain, fever.. RN FIRST ASSIST: 10:22 LMP 09/11/2019 aa5 Historical: - Allergies: 10:22 No Known Allergies; aa5 - PMHx: 10:22 appendicitis w/o appendectomy; aa5 - PSHx: 10:22 None; aa5 - Immunization history:: Flu vaccine is not up to date. - Social history:: Smoking status: Patient/guardian denies using tobacco. - Ebola Screening: : No symptoms or risks identified at this time. ROS: 12:39 Constitutional: Negative for fever, chills, and weight loss, Neck: Negative for injury, kb pain, and swelling, Cardiovascular: Negative for chest pain, palpitations, and edema, Abdomen/GI: Negative for abdominal pain, nausea, vomiting, diarrhea, and constipation, Back: Negative for injury and pain, : Negative for injury, bleeding, discharge, and swelling, MS/Extremity: Negative for injury and deformity, Skin: Negative for injury, rash, and discoloration, Neuro: Negative for headache, weakness, numbness, tingling, and seizure. 12:39 ENT: Positive for hoarseness, rhinorrhea, sore throat. 12:39 Respiratory: Positive for cough, with no reported sputum, Negative for dyspnea on exertion, hemoptysis, orthopnea, pleurisy, shortness of breath, sputum production, wheezing. Exam: 12:39 Constitutional: This is a well developed, well nourished patient who is awake, alert, kb and in no acute distress. Head/Face: Normocephalic, atraumatic. ENT: Nares patent. No nasal discharge, no septal abnormalities noted. Tympanic membranes are normal and external auditory canals are clear. Oropharynx with no redness, swelling, or masses, exudates, or evidence of obstruction, uvula midline. Mucous membranes moist. Neck: Trachea midline, no thyromegaly or masses palpated, and no cervical lymphadenopathy. Supple, full range of motion without nuchal rigidity, or vertebral point tenderness. No Meningismus. Chest/axilla: Normal chest wall appearance and motion. Nontender with no deformity. No lesions are appreciated. Cardiovascular: Regular rate and rhythm with a normal S1 and S2. No gallops, murmurs, or rubs. Normal PMI, no JVD. No pulse deficits. Respiratory: Lungs have equal breath sounds bilaterally, clear to auscultation and percussion. No rales, rhonchi or wheezes noted. No increased work of breathing, no retractions or nasal flaring. Abdomen/GI: Soft, non-tender, with normal bowel sounds. No distension or tympany. No guarding or rebound. No evidence of tenderness throughout. Back: No spinal tenderness. No costovertebral tenderness. Full range of motion. Skin: Warm, dry with normal turgor. Normal color with no rashes, no lesions, and no evidence of cellulitis. MS/ Extremity: Pulses equal, no cyanosis. Neurovascular intact. Full, normal range of motion. Neuro: Awake and alert, GCS 15, oriented to person, place, time, and situation. Cranial nerves II-XII grossly intact. Motor strength 5/5 in all extremities. Sensory grossly intact. Cerebellar exam normal. Normal gait. Vital Signs: 10:22 BP 139 / 85; Pulse 107; Resp 20 S; Temp 98.4(O); Pulse Ox 98% on R/A; Weight 108.86 kg aa5 (R); Height 5 ft. 1 in. (154.94 cm) (R); Pain 4/10; 11:29 BP 138 / 82; Pulse 103; Resp 20; Pulse Ox 99% on R/A; em 10:22 Body Mass Index 45.35 (108.86 kg, 154.94 cm) aa5 MDM: 10:42 Patient medically screened. 12:15 Data reviewed: vital signs, nurses notes. Data interpreted: Pulse oximetry: on room air kb is 100 %. Interpretation: normal. Counseling: I had a detailed discussion with the patient and/or guardian regarding: the historical points, exam findings, and any diagnostic results supporting the discharge/admit diagnosis, lab results, radiology results, the need for outpatient follow up, a family practitioner, to return to the emergency department if symptoms worsen or persist or if there are any questions or concerns that arise at home. 10/15 10:35 Order name: Flu 10/15 10:35 Order name: Strep 10/15 11:22 Order name: Urine Dipstick--Ancillary (enter results) 10/15 11:22 Order name: Urine --Ancillary (enter results) 10/15 11:24 Order name: Group A Streptococcus Rapid Sc; Complete Time: 11:27 EDMS 10/15 11:27 Order name: Influenza Screen (A ; Complete Time: 11:28 EDMS 10/15 10:35 Order name: Chest Pa And Lat (2 Views) XRAY 10/15 11:33 Order name: RAD; Complete Time: 11:36 EDMS Administered Medications: No medications were administered Disposition: 10/15/19 12:18 Discharged to Home. Impression: Acute upper respiratory infection, unspecified. - Condition is Stable. - Discharge Instructions: Upper Respiratory Infection, Adult, [id number], Viral Respiratory Infection, [id number]. - Prescriptions for Albuterol Sulfate 90 mcg/actuation - inhale 1-2 puff by INHALATION route every 4-6 hours; 1 Inhaler. - Work release form, Medication Reconciliation Form, Thank You Letter, Antibiotic Education, Prescription Opioid Use form. - Follow up: Emergency Department; When: As needed; Reason: Worsening of condition. Follow up: Private Physician; When: 2 - 3 days; Reason: Recheck today's complaints, Continuance of care, Re-evaluation by your physician. Addendum: 10/18/2019 10:06 Co-signature as Attending Physician, Star Villela MD I agree with the assessment and k dr plan of care. Signatures: Dispatcher [employer] EDAlma Delia Felder, HEARING CARE PROFESSIONAL-C HEARING CARE PROFESSIONAL-Ckb Star Villela MD MD [facility] Jose J Winchester, VIDEO EDITING INTERN VIDEO EDITING INTERN em Mary Proctor, RN RN aa5 Corrections: (The following items were deleted from the chart) 10/15 12:44 12:18 10/15/2019 12:18 Discharged to Home. Impression: Acute upper respiratory em infection, unspecified. Condition is Stable. Forms are Medication Reconciliation Form, Thank You Letter, Antibiotic Education, Prescription Opioid Use. Follow up: Emergency Department; When: As needed; Reason: Worsening of condition. Follow up: Private Physician; When: 2 - 3 days; Reason: Recheck today's complaints, Continuance of care, Re-evaluation by your physician. kb
--- NOTE | 2019-10-15 12:18 | ER ---
Nurse's Notes [facility] Name: Alma Delia Abdullahi Age: 29 yrs Sex: Female : 1990 Arrival Date: 10/15/2019 Time: 10:13 Bed 19 Private MD: Diagnosis: Acute upper respiratory infection, unspecified Presentation: 10/15 10:20 Presenting complaint: Patient states: cough that began 3 days ago. Pt states "this aa5 morning it's been getting harder to breathe". Pt also c/o sore throat, hoarse voice noted in triage. Transition of care: patient was not received from another setting of care. Onset of symptoms was September 2019. Risk Assessment: Do you want to hurt yourself or someone else? Patient reports no desire to harm self or others. Initial Sepsis Screen: Does the patient meet any 2 criteria? No. Patient's initial sepsis screen is negative. Does the patient have a suspected source of infection? No. Patient's initial sepsis screen is negative. Care prior to arrival: None. 10:20 Acuity: MAURILIO 3 aa5 10:20 Method Of Arrival: Ambulatory aa5 SPRAY GUNNER: 10:22 LMP 09/11/2019 aa5 Historical: - Allergies: 10:22 No Known Allergies; aa5 - PMHx: 10:22 appendicitis w/o appendectomy; aa5 - PSHx: 10:22 None; aa5 - Immunization history:: Flu vaccine is not up to date. - Social history:: Smoking status: Patient/guardian denies using tobacco. - Ebola Screening: : No symptoms or risks identified at this time. Screenin:51 Abuse screen: Denies threats or abuse. Nutritional screening: No deficits noted. em Tuberculosis screening: No symptoms or risk factors identified. Fall Risk None identified. Assessment: 10:51 General: Appears in no apparent distress. comfortable, Behavior is calm, cooperative, em Denies fever. Pain: Complains of pain in throat Pain currently is 8 out of 10 on a pain scale. Neuro: Level of Consciousness is awake, alert, obeys commands, Oriented to person, place, time, situation, Appropriate for age. Cardiovascular: Capillary refill < 3 seconds Patient's skin is warm and dry. Respiratory: Reports cough that is non-productive, labored breathing since this morning pain with cough Airway is patent Respiratory effort is even, unlabored, Respiratory pattern is regular, symmetrical, Breath sounds are clear bilaterally. Onset: The symptoms/episode began/occurred 2-3 days ago. GI: Abdomen is round non-distended, obese, Patient currently denies nausea, vomiting. EENT: Lid(s) Nares are clear Oral mucosa is moist. Throat is reddened. Derm: Skin is intact, is healthy with good turgor, Skin is pink, warm \\T\\ dry. Musculoskeletal: Capillary refill < 3 seconds, Range of motion: intact in all extremities. 11:00 Reassessment: I agree with previous assessment. hb 12:43 Reassessment: Patient appears in no apparent distress at this time. Patient and/or em family updated on plan of care and expected duration. Pain level reassessed. Patient is alert, oriented x 3, equal unlabored respirations, skin warm/dry/pink. Vital Signs: 10:22 BP 139 / 85; Pulse 107; Resp 20 S; Temp 98.4(O); Pulse Ox 98% on R/A; Weight 108.86 kg aa5 (R); Height 5 ft. 1 in. (154.94 cm) (R); Pain 4/10; 11:29 BP 138 / 82; Pulse 103; Resp 20; Pulse Ox 99% on R/A; em 10:22 Body Mass Index 45.35 (108.86 kg, 154.94 cm) aa5 ED Course: 10:13 Patient arrived in ED. mr 10:20 Arm band placed on. aa5 10:21 Triage completed. aa5 10:22 Alma Delia Walters FNP-C [facility]. kb 10:22 Star Villela MD is Attending Physician. kb 10:40 Jose J Winchester LVN is Primary Nurse. em 10:43 Flu and/or RSV swab sent to lab. Strep swab sent to lab. jb1 10:44 Strep Sent. jb1 10:44 Flu Sent. jb1 10:51 Patient has correct armband on for positive identification. Placed in gown. Bed in low em position. Call light in reach. Adult w/ patient. Pulse ox on. NIBP on. 12:43 No provider procedures requiring assistance completed. Patient did not have IV access em during this emergency room visit. Administered Medications: No medications were administered Outcome: 12:18 Discharge ordered by . mika 12:43 Discharged to home ambulatory, with family. em 12:43 Condition: good 12:43 Discharge instructions given to patient, Instructed on discharge instructions, follow up and referral plans. medication usage, Demonstrated understanding of instructions, follow-up care, medications, Prescriptions given X 1. 12:44 Patient left the ED. em Signatures: Rusty Ulloa jb1 Alma Delia Walters, ORACLE DATABASE ARCHITECT-C ORACLE DATABASE ARCHITECT-Ckb Flores Castro mr Jose J Winchester, RETORT OPERATOR RETORT OPERATOR em Mary Proctor, RN RN aa5 Shamika Acosta, RN RN hb
[2019-10-15 13:31] LABS: Urine Blood 1+ (NEG); Urine Glucose NEGATIVE (NEG); Urine Protein TRACE (NEG); Urine Specific Gravity 1.025 (1.005-1.030)
[2019-10-15 19:13] VITALS: BP 138/82; O2SAT 99
[2019-10-15 20:50] VITALS: TEMP 98.4
== END 2019-10-15 12:44 | disposition home or self-care (01) ==
LOC: ER 10:10
DX: J06.9 Acute upper respiratory infection, unspecified (principal)
CPT/HCPCS: 71046; 81003; 81025; 87070; 87081; 87804; 99283

== ENCOUNTER 2020-06-07 19:05 | Emergency (ER) | payer SELFPAY ==
[2020-06-07] MEDS ORDERED: HYDROCODONE/APAP 7.5/325 MG TAB ONE (19:49)
[2020-06-07] MEDS ORDERED: TETANUS & DIPHTHERIA TOX,ADULT 0.5 ML VIAL ONE (19:50)
[2020-06-07] MEDS ORDERED: LIDOCAINE 1% W/EPI 1:100,000 MDV 20 ML VIAL ONE (19:50)
--- NOTE | 2020-06-07 20:32 | RAD REPORT ---
EXAM DESCRIPTION: RAD -Hand Left 3 View - 06/07/2020 8:25 pm CLINICAL HISTORY: Left hand pain status post injury FINDINGS: No fracture or dislocation is seen. A radiopaque foreign body is not seen
--- NOTE | 2020-06-07 20:51 | ER ---
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 Swelling noted to back of hand. Bleeding controlled. Coronavirus screen: Patient denies a cough. Patient denies shortness of breath or difficulty breathing. Patient denies measured and/or subjective temperature greater than 100.4F prior to today's visit. Patient denies travel on a cruise ship or to a country the [facility] currently lists as an affected area. Patient denies contact with known and/or suspected case of COVID-19. Proceed with normal triage. Ebola Screen: Patient denies travel to an Ebola-affected area in the 21 days before illness onset. Initial Sepsis Screen: Does the patient meet any 2 criteria? No. Patient's initial sepsis screen is negative. Risk Assessment: Do you want to hurt yourself or someone else? Patient reports no desire to harm self or others. Onset of symptoms was June 07, 2020. 19:23 Method Of Arrival: Ambulatory 1 19:23 Acuity: MAURILIO 4 ll1 20:38 Initial Sepsis Screen: Does the patient have a suspected source of infection? No. vc Patient's initial sepsis screen is negative. Historical: - Allergies: 19:24 No Known Allergies; ll1 - PMHx: 19:24 appendicitis w/o appendectomy; ll1 - PSHx: 19:24 None; ll1 - Immunization history:: Last tetanus immunization: unknown. - Social history:: Smoking status: Patient denies any tobacco usage or history of. Patient uses alcohol, only on a social basis. street drugs, marijuana. Screenin:30 Abuse screen: Denies threats or abuse. Nutritional screening: No deficits noted. vc Tuberculosis screening: No symptoms or risk factors identified. Fall Risk None identified. Assessment: 19:15 General: Appears in no apparent distress. uncomfortable, Behavior is calm, cooperative, vc appropriate for age. Pain: Complains of pain in palm of left hand Pain does not radiate. Pain currently is 3 out of 10 on a pain scale. Quality of pain is described as stabbing, Pain began 30 min ago. Is continuous. Neuro: Level of Consciousness is awake, alert, obeys commands, Oriented to person, place, time, situation, Appropriate for age. Cardiovascular: Capillary refill < 3 seconds Patient's skin is warm and dry. Respiratory: Airway is patent Respiratory effort is even, unlabored, Respiratory pattern is regular, symmetrical. GI: No signs and/or symptoms were reported involving the gastrointestinal system. : No signs and/or symptoms were reported regarding the genitourinary system. Derm: Wound noted palm of left hand. 20:00 Reassessment: Patient appears in no apparent distress at this time. Patient and/or vc family updated on plan of care and expected duration. Pain level reassessed. Patient is alert, oriented x 3, equal unlabored respirations, skin warm/dry/pink. 21:00 Reassessment: Patient appears in no apparent distress at this time. Patient and/or vc family updated on plan of care and expected duration. Pain level reassessed. Patient is alert, oriented x 3, equal unlabored respirations, skin warm/dry/pink. Patient states feeling better. Patient states symptoms have improved. Vital Signs: 19:23 Pulse 84; Resp 18; Temp 98.4; Pulse Ox 100% ; Pain 3/10; ll1 19:34 BP 143 / 100; vc ED Course: 19:09 Patient arrived in ED. cl3 19:17 [facility] Rico PA [facility]. cp 19:17 Zheng Gatica MD is Attending Physician. cp 19:20 Attending Physician role handed off by Zheng Gatica MD [facility] 19:20 Favio Wilcox MD is Attending Physician. dominick 19:24 Triage completed. ll1 19:25 Arm band placed on Patient placed in an exam room, on a stretcher. ll1 19:28 Terrie Price, ED is Primary Nurse. vc 19:30 Placed in gown. Bed in low position. Call light in reach. Pulse ox on. NIBP on. vc 20:25 XRAY Hand LEFT 3 View In Process Unspecified. EDMS 21:34 No provider procedures requiring assistance completed. Patient did not have IV access vc during this emergency room visit. Administered Medications: 19:40 Drug: Tetanus-Diphtheria Toxoid Adult 0.5 ml {Agile Project Manager: [employer]. Exp: 01/06/2023. Lot #: [id number]. } Route: IM; Site: left deltoid; 21:38 Follow up: Response: No adverse reaction vc 19:40 Drug: Hydrocodone-Acetaminophen (7.5 mg-325 mg) 1 tabs Route: PO; sg 21:38 Follow up: Response: No adverse reaction; Pain is decreased vc 19:45 Drug: Lidocaine-Epinephrine -1%: (1:100,000) 10 ml {Note: medication administered by sean KAN.} Volume: 20 ml; Route: Infiltration; Outcome: 20:51 Discharge ordered by . lisha 21:34 Discharged to home ambulatory. vc 21:34 Condition: good 21:34 Discharge instructions given to patient, Instructed on discharge instructions, follow up and referral plans. medication usage, wound care, Demonstrated understanding of instructions, follow-up care, medications, wound care, splint care, Prescriptions given X 1. 21:39 Patient left the ED. vc Signatures: Dispatcher [employer] EDMS Orlando Knox, Favio Finnegan RN, MD MD cha Page, Corey, PA PA cp Lewis, Charde cl3 Terrie rPice RN RN vc Lewis, Lynsay, RN RN ll1
--- NOTE | 2020-06-07 20:51 | EDPHYS ---
Physician Documentation [facility] Name: Alma Delia Abdullahi Age: 29 yrs Sex: Female : 1990 Arrival Date: 06/07/2020 Time: 19:09 Bed 18 Private MD: ED Physician Favio Wilcox HPI: 06/07 19:45 This 29 yrs old Female presents to ER via Ambulatory with complaints of cp Laceration To Finger. 19:45 The patient or guardian reports a laceration, clean. The complaints affect the palm of cp left hand. Context: The problem was sustained at work, resulted from stab type wound. 19:45 Onset: The symptoms/episode began/occurred just prior to arrival. Associated signs and cp symptoms: Pertinent negatives: cyanosis distally, numbness distally. Severity of symptoms: in the emergency department the symptoms are unchanged. Historical: - Allergies: 19:24 No Known Allergies; ll1 - PMHx: 19:24 appendicitis w/o appendectomy; ll1 - PSHx: 19:24 None; ll1 - Immunization history:: Last tetanus immunization: unknown. - Social history:: Smoking status: Patient denies any tobacco usage or history of. Patient uses alcohol, only on a social basis. street drugs, marijuana. ROS: 19:50 Skin: Positive for laceration(s), swelling, of the palm of left hand. cp 19:50 Constitutional: Negative for body aches, chills, fever. cp 19:50 Cardiovascular: Negative for chest pain. 19:50 Respiratory: Negative for cough, shortness of breath, wheezing. 19:50 Abdomen/GI: Negative for abdominal pain, nausea, vomiting, and diarrhea. 19:50 MS/extremity: Positive for pain, of the left hand, Negative for decreased range of motion, paresthesias. 19:50 All other systems are negative. Exam: 19:55 Constitutional: The patient appears in no acute distress, alert, awake, well developed, cp well nourished. 19:55 Head/Face: Normocephalic, atraumatic. cp 19:55 Chest/axilla: Inspection: normal. 19:55 Cardiovascular: Rate: normal. 19:55 Respiratory: the patient does not display signs of respiratory distress, Respirations: normal. 19:55 Skin: injury, laceration(s), of the palm of left hand, that can be described as clean, linear, with mild bleeding, mild swelling, moderate tenderness to palpation. Vital Signs: 19:23 Pulse 84; Resp 18; Temp 98.4; Pulse Ox 100% ; Pain 3/10; ll1 19:34 BP 143 / 100; vc Procedures: 21:40 Splinting: Splint applied to left hand using Orthoglass splint, volar surface splint. cp applied by nurse. Examined by me, post splint application: neurovascular intact, Patient tolerated well. Laceration: 20:55 Wound Repair of 2cm ( 0.8in ) subcutaneous laceration to palm of left hand. Linear cp shaped.. Distal neuro/vascular/tendon intact. Anesthesia: Wound infiltrated with 4 mls of 1% lidocaine w/ Epi. Wound prep: Moderate cleansing by me, Wound irrigation by me. Skin closed with 2 4-0 Prolene using interrupted sutures and sterile technique. Dressed with Bacitracin, 4x4's. Patient tolerated well. MDM: 19:20 Patient medically screened. dominick 19:45 Differential diagnosis: open fracture, contusion, tendon injury. cp 20:50 Data reviewed: vital signs, nurses notes, radiologic studies, plain films. cp 20:50 Test interpretation: by ED physician or midlevel provider: plain radiologic studies. cp Counseling: I had a detailed discussion with the patient and/or guardian regarding: the historical points, exam findings, and any diagnostic results supporting the discharge/admit diagnosis, radiology results, the need for outpatient follow up, a family practitioner, to return to the emergency department if symptoms worsen or persist or if there are any questions or concerns that arise at home. Response to treatment: the patient's symptoms have markedly improved after treatment, and as a result, I will discharge patient. 06/07 19:37 Order name: XRAY Hand LEFT 3 View; Complete Time: 20:49 cp 06/07 20:49 Interpretation: Report reviewed. 06/07 19:37 Order name: Dressing - Wound; Complete Time: 21:38 cp 06/07 19:37 Order name: Gloves, Sterile; Complete Time: 20:10 06/07 19:37 Order name: Setup Suture Tray; Complete Time: 20:10 06/07 20:31 Order name: Wound Care: please clean and irrigate wound; Complete Time: 21:37 cp 06/07 20:50 Order name: Splint - Wrist: orthoglass volar surface hand splint; Complete Time: 21:37 cp Administered Medications: 19:40 Drug: Tetanus-Diphtheria Toxoid Adult 0.5 ml {Waist Pleater: [employer]. Exp: 01/06/2023. Lot #: [id number]. } Route: IM; Site: left deltoid; 21:38 Follow up: Response: No adverse reaction vc 19:40 Drug: Hydrocodone-Acetaminophen (7.5 mg-325 mg) 1 tabs Route: PO; sg 21:38 Follow up: Response: No adverse reaction; Pain is decreased vc 19:45 Drug: Lidocaine-Epinephrine -1%: (1:100,000) 10 ml {Note: medication administered by sean KAN.} Volume: 20 ml; Route: Infiltration; Disposition: 21:45 Chart complete. cp Disposition: 06/07/20 20:51 Discharged to Home. Impression: Laceration without foreign body of left hand. - Condition is Stable. - Discharge Instructions: Laceration Care, Adult, Sutured Wound Care. - Prescriptions for Ibuprofen 800 mg Oral Tablet - take 1 tablet by ORAL route every 8 hours As needed take with food; 30 tablet. - Medication Reconciliation Form, Thank You Letter, Antibiotic Education, Prescription Opioid Use, Work release form form. - Follow up: Private Physician; When: 7 - 10 days; Reason: Staple/Suture removal. - Problem is new. - Symptoms have improved. Addendum: 06/10/2020 07:15 Co-signature as Attending Physician, Favio Wilcox MD I agree with the assessment and c reilly plan of care. Signatures: Dispatcher [employer] EDOrlando Garcias RN RN sg Anderson, Corey, MD MD cha Page, Corey, PA PA cp Terrie Price RN RN vc Lewis, Lynsay, RN RN ll1 Corrections: (The following items were deleted from the chart) 06/07 21:39 20:51 06/07/2020 20:51 Discharged to Home. Impression: Laceration without foreign body vc of left hand. Condition is Stable. Forms are Medication Reconciliation Form, Thank You Letter, Antibiotic Education, Prescription Opioid Use. Follow up: Private Physician; When: 7 - 10 days; Reason: Staple/Suture removal. Problem is new. Symptoms have improved. cp
[2020-06-08 00:38] VITALS: BP 143/100; TEMP 98.4; O2SAT 100
== END 2020-06-07 21:39 | disposition home or self-care (01) ==
LOC: ER 19:05
PROC: 0JQK0ZZ Repair Left Hand Subcutaneous Tissue and Fascia, Open Approach (ICD-10-PCS; principal; 2020-06-07)
DX: S61.412A Laceration without foreign body of left hand, initial encounter (principal); W26.0XXA Contact with knife, initial encounter; Y93.G3 Activity, cooking and baking; Y92.89 Other specified places as the place of occurrence of the external cause; Y99.0 Civilian activity done for income or pay; Z23 Encounter for immunization
CPT/HCPCS: 90471; 90714; 99284